=== PATIENT | male | born 1960 | race African-American/Black ===

== ENCOUNTER 2022-11-24 10:22 | Inpatient (IN) | payer MEDICARE, OTHER ==
[~2022-11-24] VITALS: Ht 180.3 cm; Wt 98.9 kg
[2022-11-24 10:56] LABS: GLUCOMETER DEV NAME(LOC) ER.6
[2022-11-24 12:03] LABS: CALCIUM, TOTAL 9.2 mg/dL (8.8-10.5); CREATININE 1.38 mg/dL (0.60-1.30); POTASSIUM 3.5 mmol/L (3.5-5.1)
[2022-11-24 12:08] LABS: ALBUMIN 3.8 g/dL (3.4-5.0); BILIRUBIN,TOTAL 0.3 mg/dL (0.1-1.0); TOTAL PROTEIN, SERUM 7.9 g/dL (6.4-8.2)
[2022-11-24 12:10] LABS: AMMONIA 30 umol/L (11-32)
[2022-11-24 12:41] LABS: BASOPHILS % (AUTO) 0.7 % (0.0-2.0); EOSINOPHILS % (AUTO) 2.1 % (1.0-6.0); HEMATOCRIT 41.6 % (41-53); HEMOGLOBIN 13.4 g/dL (13.5-17.5); LYMPHOCYTES # (AUTO) 1.5 K/uL (1.0-4.8); LYMPHOCYTES % (AUTO) 31.4 % (22.0-44.0); MEAN CORPUSCULAR HEMOGLOBIN 29.1 pg (26.0-34.0); MEAN CORPUSCULAR HGB CONC 32.3 G/dL (31.0-37.0); MEAN CORPUSCULAR VOLUME 90 fL (80-100); MONOCYTES # (AUTO) 0.5 K/uL (0.1-1.0); MONOCYTES % (AUTO) 9.9 % (2.0-9.0); NEUTROPHILS # (AUTO) 2.7 K/uL (1.8-7.7); NEUTROPHILS % (AUTO) 55.9 % (40.0-70.0); PLATELET COUNT (AUTO) 291 K/uL (150-450); RED BLOOD CELL COUNT(AUTO) 4.62 MIL/uL (4.50-5.90); RED CELL DISTRIBUTION WIDTH 15.3 % (11.5-14.5)
[2022-11-24 12:53] LABS: PROTHROMBIN TIME 10.3 SEC (9.4-11.6)
[2022-11-24 13:28] LABS: APPEARANCE,URINE CLEAR (CLEAR); BILIRUBIN,URINE NEGATIVE (NEGATIVE); GLUCOSE, URINE (UA) NEGATIVE (NEGATIVE); KETONES,URINE NEGATIVE (NEGATIVE); LEUKOCYTE ESTERASE ,URINE LARGE (NEGATIVE); NITRATE,URINE NEGATIVE (NEGATIVE); OCCULT BLOOD,URINE NEGATIVE (NEGATIVE); PROTEIN,URINE TRACE mg/dL (NEGATIVE); SPECIFIC GRAVITIY, URINE 1.016 (1.003-1.030); UROBILINOGEN,URINE <=1.0 mg/dL (<=1.0)
[2022-11-24 13:35] LABS: AMPHET/METH SCREEN,URINE NEGATIVE (NEGATIVE); BARBITURATE SCREEN, URINE NEGATIVE (NEGATIVE); BENZODIAZEPINES SCREEN,URINE NEGATIVE (NEGATIVE); CANNABINOID SCREEN,URINE NEGATIVE (NEGATIVE); COCAINE SCREEN,URINE NEGATIVE (NEGATIVE); METHADONE SCREEN, URINE NEGATIVE (NEGATIVE); OPIATE SCREEN,URINE NEGATIVE (NEGATIVE); PHENCYCLIDINE SCREEN,URINE NEGATIVE (NEGATIVE)
[2022-11-24] MEDS ORDERED: AMLO-258 PO (13:42)
[2022-11-24] MEDS ORDERED: FISH1CAP27 PO (13:42)
[2022-11-24] MEDS ORDERED: HYDR25TA2 PO (13:42)
[2022-11-24] MEDS ORDERED: LISI-894 PO (13:42)
[2022-11-24] MEDS ORDERED: CHOL200059 PO (13:42)
[2022-11-24] MEDS ORDERED: ELVI1TAB3 PO (13:42)
[2022-11-24] MEDS ORDERED: ICOS1CAP PO (13:42)
[2022-11-24 13:57] LABS: RBC,URINE None Seen /HPF (0-2); WBC,URINE 26-50 /HPF (0-5)
[2022-11-24 13:58] LABS: BACTERIA,URINE Many /HPF (None Seen); SQUAMOUS EPITHELIAL CELL,UR Few /LPF (None Seen)
[2022-11-24] MEDS ORDERED: OxyCODONE HCL/ACETAMINOPHEN 5-325 MG TABLET PO PRN ×2 (18:15)
[2022-11-24] MEDS ORDERED: 0.9% SODIUM CHLORIDE 10 ML SYRINGE IVP PRN (18:15)
[2022-11-24] MEDS ORDERED: MAGNESIUM HYDROXIDE SUSPENSION 30 ML UDCUP PO PRN (18:15)
[2022-11-24] MEDS ORDERED: ACETAMINOPHEN 325 MG TABLET PO PRN (18:15)
[2022-11-24] MEDS ORDERED: ONDANSETRON HCL 4 MG/2 ML VIAL IVP PRN (18:15)
[2022-11-24] MEDS: CefTRIAXone 1 GM/DEXTROSE 50 ML IV SCH (18:21)
[2022-11-24] MEDS: ELVITEG/COB/EMTRI/TENOF ALAFEN 150-150-200-10MG TABLET PO SCH (18:45)
[2022-11-24] MEDS: AmLODIPine BESYLATE 10 MG TABLET PO SCH (18:45)
[2022-11-24] MEDS: CHOLECALCIFEROL (VIT D3) 1,000 UNITS [25 MCG] TABLET PO SCH (18:45)
[2022-11-24] MEDS: HEPARIN SODIUM,PORCINE 5,000 UNITS/ML VIAL SQ SCH (21:00)
[2022-11-24] MEDS: DOCUSATE SODIUM 100 MG CAPSULE PO SCH (21:00)
[2022-11-25 01:40] VITALS: BP 139/95; PULSE 68; RESP 28; TEMP 97.8
[2022-11-25 04:21] VITALS: BP 140/92; PULSE 71; RESP 24; TEMP 97.6
[2022-11-25 07:13] LABS: BASOPHILS % (AUTO) 0.6 % (0.0-2.0); EOSINOPHILS % (AUTO) 2.2 % (1.0-6.0); HEMOGLOBIN 14.2 g/dL (13.5-17.5); LYMPHOCYTES # (AUTO) 1.7 K/uL (1.0-4.8); LYMPHOCYTES % (AUTO) 34.5 % (22.0-44.0); MEAN CORPUSCULAR HEMOGLOBIN 28.9 pg (26.0-34.0); MEAN CORPUSCULAR HGB CONC 32.2 G/dL (31.0-37.0); MEAN CORPUSCULAR VOLUME 90 fL (80-100); MONOCYTES # (AUTO) 0.6 K/uL (0.1-1.0); MONOCYTES % (AUTO) 11.8 % (2.0-9.0); NEUTROPHILS # (AUTO) 2.5 K/uL (1.8-7.7); NEUTROPHILS % (AUTO) 50.9 % (40.0-70.0); PLATELET COUNT (AUTO) 270 K/uL (150-450); RED CELL DISTRIBUTION WIDTH 15.1 % (11.5-14.5)
[2022-11-25 07:36] LABS: ANION GAP 9 mmol/L (8-16); CALCIUM, TOTAL 9.2 mg/dL (8.8-10.5); CARBON DIOXIDE 28 mmol/L (22-29); CHLORIDE 101 mmol/L (98-107); CHOL/HDL RATIO 4.5 (4.2-7.3); CHOLESTEROL 176 mg/dL (131-200); CREATININE 1.13 mg/dL (0.60-1.30); GLOMERULAR FILTR. RATE CALC > 60 mL/min (>60); GLUCOSE,RANDOM 81 mg/dL (70-110); HDL CHOLESTEROL 39 mg/dL (40-60); LDL CHOL (CALC.) 111 mg/dL (0-130); POTASSIUM 3.3 mmol/L (3.5-5.1); SODIUM SERUM 138 mmol/L (136-145); TRIGLYCERIDES 128 mg/dL (15-150)
[2022-11-25 08:08] VITALS: BP 140/85; PULSE 58; RESP 18; TEMP 97.6
[2022-11-25] MEDS: PANTOPRAZOLE SODIUM 40 MG/VIAL IVP SCH (09:00)
[2022-11-25] MEDS: ELVITEG/COB/EMTRI/TENOF ALAFEN 150-150-200-10MG TABLET PO SCH (09:00)
[2022-11-25] MEDS: AmLODIPine BESYLATE 10 MG TABLET PO SCH (09:27)
[2022-11-25] MEDS: ASPIRIN 81 MG CHEWABLE TABLET PO SCH (09:27)
[2022-11-25] MEDS: HEPARIN SODIUM,PORCINE 5,000 UNITS/ML VIAL SQ SCH ×2 (09:28→19:40)
[2022-11-25] MEDS: LISINOPRIL 20 MG TABLET PO SCH (09:28)
[2022-11-25] MEDS: CHOLECALCIFEROL (VIT D3) 1,000 UNITS [25 MCG] TABLET PO SCH (09:28)
[2022-11-25] MEDS: DOCUSATE SODIUM 100 MG CAPSULE PO SCH ×2 (09:28→19:40)
[2022-11-25] MEDS: ATORVASTATIN CALCIUM 40 MG TABLET PO SCH (09:28)
[2022-11-25 12:08] VITALS: BP 122/91; PULSE 63; RESP 20; TEMP 97.8
[2022-11-25] MEDS ORDERED: POTASSIUM CHLORIDE 20 MEQ ER TABLET PO PRN (12:15)
[2022-11-25] MEDS ORDERED: POTASSIUM CHL 10 MEQ/WATER 50 ML IV PRN (12:15)
[2022-11-25 15:52] VITALS: BP 117/83; PULSE 75; RESP 16; TEMP 98.4
[2022-11-25] MEDS: CefTRIAXone 1 GM/DEXTROSE 50 ML IV SCH (18:15)
[2022-11-25] MEDS ORDERED: SODIUM CHLORIDE 0.9% 500 ML IV ONE (18:15)
[2022-11-25 20:05] VITALS: BP 121/81; PULSE 79; RESP 18; TEMP 98.3
[2022-11-25] MEDS ORDERED: IOHEXOL 350 MG/ML 100 ML VIAL ONE (21:36)
[2022-11-25] MEDS ORDERED: SODIUM CHLORIDE 0.9% 100 ML ONE (21:36)
[2022-11-26 00:06] VITALS: BP 132/86; PULSE 62; RESP 18; TEMP 97.8
[2022-11-26 04:35] VITALS: BP 138/83; PULSE 57; RESP 18; TEMP 97.9
[2022-11-26] MEDS: AmLODIPine BESYLATE 10 MG TABLET PO SCH (08:11)
[2022-11-26] MEDS: DOCUSATE SODIUM 100 MG CAPSULE PO SCH (08:11)
[2022-11-26] MEDS: PANTOPRAZOLE SODIUM 40 MG/VIAL IVP SCH (08:11)
[2022-11-26] MEDS: HEPARIN SODIUM,PORCINE 5,000 UNITS/ML VIAL SQ SCH (08:11)
[2022-11-26] MEDS: ASPIRIN 81 MG CHEWABLE TABLET PO SCH (08:12)
[2022-11-26] MEDS: LISINOPRIL 20 MG TABLET PO SCH (08:12)
[2022-11-26] MEDS: ATORVASTATIN CALCIUM 40 MG TABLET PO SCH (08:12)
[2022-11-26] MEDS: ELVITEG/COB/EMTRI/TENOF ALAFEN 150-150-200-10MG TABLET PO SCH (08:12)
[2022-11-26] MEDS: CHOLECALCIFEROL (VIT D3) 1,000 UNITS [25 MCG] TABLET PO SCH (08:12)
[2022-11-26 08:17] VITALS: BP 182/71; PULSE 55; RESP 18; TEMP 98.1
[2022-11-26] MEDS ORDERED: CEPH-558 PO ×2 (10:48→22:19)
[2022-11-26] MEDS ORDERED: ATOR40TA71 PO ×2 (10:48→22:16)
[2022-11-26] MEDS ORDERED: AMLO-258 PO (10:48)
[2022-11-26] MEDS ORDERED: ASPI81 PO (10:48)
[2022-11-26 11:31] VITALS: BP 119/79; PULSE 74; RESP 18; TEMP 98.3
[2022-11-26 16:00] VITALS: BP 114/74; PULSE 63; RESP 18; TEMP 98.1
[2022-11-26] MEDS ORDERED: CHOL10002 PO (22:15)
[2022-11-26] MEDS ORDERED: ICOS0.5C PO (22:15)
[2022-11-26] MEDS ORDERED: HYDR25TA2 PO (22:15)
[2022-11-26] MEDS ORDERED: OMEG10005 PO (22:15)
[2022-11-26] MEDS ORDERED: ELVI1TAB3 PO (22:15)
[2022-11-26] MEDS ORDERED: LISI-894 PO (22:15)
[2022-11-26] MEDS ORDERED: ASPI81TA87 PO (22:16)
[2022-11-28] MEDS ORDERED: CEPH-558 PO (11:00)
== END 2022-11-26 16:30 | disposition home health service (06) | DRG 64 ==
LOC: EMS 10:25 → 5S 18:11
PROVIDERS: ADMIT Internal Medicine; ATTEND Internal Medicine
DX: I63.81 Other cerebral infarction due to occlusion or stenosis of small artery (principal); G93.41 Metabolic encephalopathy; N39.0 Urinary tract infection, site not specified; N17.9 Acute kidney failure, unspecified; B20 Human immunodeficiency virus [HIV] disease; I63.529 Cerebral infarction due to unspecified occlusion or stenosis of unspecified anterior cerebral artery; I12.9 Hypertensive chronic kidney disease with stage 1 through stage 4 chronic kidney disease, or unspecified chronic kidney disease; N18.31 Chronic kidney disease, stage 3a; E87.6 Hypokalemia; R47.01 Aphasia
CPT/HCPCS: 51702; 70450; 70496; 70551; 71045; 80048; 80053; 80061; 80307; 81001; 82140; 82962; 83605; 84132; 84484; 85025; 85610; 85730; 87040; 87081; 87086; 87186; 92507; 92523; 92526; 92610; 93005; 93306; 93880; 97112; 97116; 97163; 97165; 97535; 99285; C9113; J0696; J1644; J7040; J7050; Q9967; 36415-L1; 36415-TC